=== PATIENT | female | born 1995 | race Caucasian/White ===

== ENCOUNTER 2020-03-04 17:03 | Emergency (ER) | payer MEDICAID, SELFPAY ==
[2020-03-04 17:05] VITALS: BP 147/99; PULSE 81; RESP 15; TEMP 36.8; O2SAT 96; BMI 28.1
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
[2020-03-04] MEDS: HYDROcodone Bitartrate/Apap 5/325 Tablet PO (18:04)
[2020-03-04 18:06] VITALS: BP 138/62; PULSE 75; RESP 18; O2SAT 97
[2020-03-04 18:15] LABS: Internal QC Validated? YES +Cl - CLEAR BKGD; Pregnancy, Serum, hCG Quali. NEGATIVE Negative
== END 2020-03-04 18:31 | disposition home or self-care (01) ==
PROVIDERS: Emergency Provider Emergency Medicine
DX: S70.11XA Contusion of right thigh, initial encounter (principal); N93.9 Abnormal uterine and vaginal bleeding, unspecified; R63.5 Abnormal weight gain; R53.83 Other fatigue; W01.0XXA Fall on same level from slipping, tripping and stumbling without subsequent striking against object, initial encounter; Y93.9 Activity, unspecified; Y92.9 Unspecified place or not applicable
CPT/HCPCS: 36415; 84703; 99283